=== PATIENT | female | born 1975 | race Caucasian/White ===

== ENCOUNTER 2022-12-21 21:31 | Emergency (ER) | payer MEDICAID, SELFPAY ==
[2022-12-21 21:42] VITALS: BMI 25.0
[2022-12-21 21:51] VITALS: BP 135/110; PULSE 119; RESP 14; TEMP 36.5; O2SAT 98
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
[2022-12-21 22:05] VITALS: BP 140/94; PULSE 126; RESP 20; O2SAT 96
[2022-12-21] MEDS: iohexol 350 mg/mL 500 mL Btl (per mL) IV (22:10)
[2022-12-21 22:12] LABS: Basophils # 0.1 10^3/uL (0.0-0.1); Basophils % 0.6 %; Eosinophils # 0.3 10^3/uL (0.0-0.8); Eosinophils % 2.2 %; Hematocrit 49.2 % (37.0-47.0); Hemoglobin 16.2 g/dL (11.5-15.3); Lymphocytes # 3.1 10^3/uL (0.8-4.8); Lymphocytes % 24.9 %; Mean Corpuscular HGB Conc 32.9 g/dL (30.0-36.0); Mean Corpuscular Hemoglobin 29.8 pg (28.0-34.0); Mean Corpuscular Volume 90.6 fl (81-99); Mean Platelet Volume 9.5 fL (7.4-10.4); Monocytes # 0.9 10^3/uL (0.2-0.9); Neutrophils # 8.08 10^3/uL (1.8-7.7); Neutrophils % 64.5 %; Nucleated Red Blood Cells % 0 %; Platelet Count 286 10^3/cmm (130-400); Red Blood Count 5.43 10^6/uL (4.1-5.3); Red Cell Distribution Width 12.9 % (12.1-15.1); White Blood Count 12.5 10^3/uL (4.0-10.0)
[2022-12-21 22:37] VITALS: RESP 16; O2SAT 99
[2022-12-21 22:37] LABS: Anion Gap 23.9 (5-19); Blood Urea Nitrogen 14 mg/dL (6-20); Calcium 9.5 mg/dL (8.5-10.5); Carbon Dioxide 21 mmol/L (22-29); Chloride 102 mmol/L (98-107); Glomerular Filtration Rate 76.9 mL/min (90-130); Glucose 121 mg/dL (65-115); Osmolality Calculated 298 mOsm/kg (285-295); Potassium 3.9 mmol/L (3.5-5.1); Sodium 143 mmol/L (136-145)
[2022-12-21] MEDS: morphine 4 mg/mL SDV 1 mL IVP (22:37)
[2022-12-21 23:46] VITALS: BP 155/92; PULSE 118; RESP 14; O2SAT 96
== END 2022-12-21 23:53 | disposition home or self-care (01) ==
PROVIDERS: Emergency Provider General Practice; PCP Internal Medicine
DX: S80.212A Abrasion, left knee, initial encounter (principal); S80.211A Abrasion, right knee, initial encounter; S00.83XA Contusion of other part of head, initial encounter; S10.0XXA Contusion of throat, initial encounter; Y04.2XXA Assault by strike against or bumped into by another person, initial encounter
CPT/HCPCS: 70450; 70498; 80048; 85025; 96374; 99285; J2270; Q9967